=== PATIENT | male | born 1950 | race Caucasian/White ===

== ENCOUNTER 2018-11-19 00:20 | Emergency (ER) | payer MEDICARE, BC ==
[~2018-11-19 00:20] MED LIST: ENT KIT ONE
--- NOTE | 2018-11-19 00:24 | ER Report ---
History and Physical Time Seen By MD: 00:20 HPI/ROS CHIEF COMPLAINT: Nosebleed HISTORY OF PRESENT ILLNESS: 68-year-old male from [place], [place], here on vacation hiking. Tonight he started a spontaneous nosebleed several hours ago. He just noted gushing from both sides of his nose. He takes no blood thinners. He takes losartan for blood pressure. He's not had previous nosebleed problems. He denies any allergies or infection. Allergies: Coded Allergies: No Known Drug Allergies (Unverified , 11/19/18) Home Meds Reported Medications Valsartan (DIOVAN) 160 Mg Tablet, 160 MG PO QDAY 11/19/18 Reviewed Nurses Notes: Yes Old Medical Records Reviewed: Yes Constitutional Vital Sign - Last 24 Hours 11/19/18 11/19/18 00:24 01:37 Temp 98.1 Pulse 89 73 Resp 20 20 B/P (MAP) 149/90 126/82 (97) Pulse Ox 95 93 O2 Delivery Room Air Room Air Physical Exam General Appearance: The patient is alert, has no immediate need for airway protection and no current signs of toxicity. Vital signs stable, blood pressure mildly elevated 149/90 HEENT: Pupils equal and round no injection. TMs normal, nasal passages gross blood in the right nares, trace blood and left nares, no active bleeding Respiratory: Chest is non tender, lungs are clear to auscultation. Cardiac: regular rate and rhythm, no murmur Musculoskeletal: Neck: Neck is supple and non tender. No lymphadenopathy Extremities have full range of motion and are non tender. No edema Skin: No rashes or lesions. DIFFERENTIAL DIAGNOSIS: After history and physical exam differential diagnosis was considered for nosebleed, epistaxis, hypertension, septal perforation Medical Decision Making ED Course/Re-evaluation ED Course Patient was admitted to an examination room. H&P was done. The differential diagnoses was considered. On clinical examination. Patient has gross epistaxis from both nares. He is unsure which side it started on. He's on no blood thinners. He has mildly elevated blood pressure. He is on losartan. He states he took it today. Patient's nose. Bleeding was controlled as noted below. Nosebleed control: Patient blew all clots from his nose. Shaan-Synephrine was sprayed in both nostrils. Patient was observed for 5 minutes. He'll had some residual bleeding. Primarily in the right. Lidocaine 1% with epi was sprayed with the atomizer in each nostril. Patient was again observed for 5 minutes. Patient had silver nitrate cautery applied to both nares, after observation a 20 minutes. There was no significant bleeding. Patient was cautioned not to blow his nose. He is advised to apply petroleum jelly or anabolic ointment with a Q- tip and gently roll a thin layer to moisturize his nose is stenosis, healing. Decision to Disposition Date: Nov 19, 2018 Decision to Disposition Time: 00:59 Depart Departure Latest Vital Signs Vital Signs Date Time Temp Pulse Resp B/P (MAP) Pulse Ox O2 Delivery O2 Flow Rate FiO2 11/19/18 01:37 73 20 126/82 (97) 93 Room Air 11/19/18 00:24 98.1 Impression: Primary Impression: Epistaxis Additional Impression: History of hypertension Condition: Improved Disposition: HOME OR SELF-CARE Patient Instructions: Nosebleed (ED) Additional Instructions: Code your nose with petroleum jelly or antibiotic ointment Problem Qualifiers FAYE AGUERO DO Nov 19, 2018 00:24
[2018-11-19] MEDS ORDERED: VALS160T22 PO (00:28)
[2018-11-19 01:37] VITALS: BP 126/82
[2018-11-19] MEDS ORDERED: PHENYLEPHRINE 0.5% 15 ML BTL ONE (01:45)
[2018-11-19] MEDS ORDERED: LIDO/EPI 2% MDV 1:100,000 20ML INFIL ONE (01:45)
[2018-11-19] MEDS ORDERED: SILVER NITRATE SWABS 10 PKG TP ONE (01:55)
== END 2018-11-19 01:37 | disposition home or self-care (01) ==
LOC: ER 00:20
DX: R04.0 Epistaxis (principal); I10 Essential (primary) hypertension
CPT/HCPCS: 30901; 99283; A9270